=== PATIENT | male | born 1935 | race Caucasian/White ===

== ENCOUNTER 2021-11-25 16:17 | Inpatient (IN) | payer MEDICARE, BC, OTHER ==
[2021-11-25] MEDS ORDERED: Potassium Chloride 10 MEQ in Premix Bag 1 BAG IV ONE (18:54)
[2021-11-25] MEDS ORDERED: Potassium Chloride 10 MEQ Tab.ER PO ONE (18:56)
[2021-11-25] MEDS ORDERED: Pantoprazole 40 MG Vial IVPUSH ONE ×2 (20:32→23:15)
[2021-11-25] MEDS ORDERED: Pantoprazole 40 MG Vial ONE (20:32)
[2021-11-25] MEDS: Potassium Chloride 10 MEQ in Premix Bag 1 BAG IV SCH ×2 (22:47→22:48)
[2021-11-25] MEDS: Potassium Chloride 20 MEQ Tab.ER PO SCH ×2 (22:47→22:55)
[2021-11-26] MEDS: Sodium Chloride 0.9% 1,000 ML IV SCH ×2 (02:33→15:52)
[2021-11-26] MEDS: Potassium Chloride 20 MEQ Tab.ER PO SCH ×3 (09:14→23:29)
[2021-11-26] MEDS ORDERED: Potassium Chloride 20 MEQ Tab.ER PO ONE (11:30)
[2021-11-26] MEDS: Acetaminophen 325 MG Tab PO PRN ×2 (11:40→20:28)
[2021-11-26] MEDS ORDERED: Albuterol 6.7 GM Inhaler INH PRN (11:42)
[2021-11-26] MEDS ORDERED: Polyethylene Glycol 3350 Powder 17 GM Packet PO PRN (11:42)
[2021-11-26] MEDS ORDERED: Albuterol/Ipratropium 3.0-0.5 MG/3 ML Neb Soln INH PRN (11:42)
[2021-11-26] MEDS ORDERED: Atenolol 25 MG Tab PO ONE (12:30)
[2021-11-26] MEDS ORDERED: Doxazosin 2 MG Tab PO ONE (12:30)
[2021-11-26] MEDS ORDERED: guaiFENesin 600 MG Tab.ER PO ONE (12:45)
[2021-11-26] MEDS ORDERED: Famotidine 20 MG Tab PO ONE (12:45)
[2021-11-26] MEDS ORDERED: Finasteride 5 MG Tab PO ONE (12:45)
[2021-11-26] MEDS ORDERED: Sertraline 50 MG Tab PO ONE (12:45)
[2021-11-26] MEDS ORDERED: Furosemide 20 MG Tab PO ONE (12:45)
[2021-11-26] MEDS: Furosemide 20 MG Tab PO SCH (20:27)
[2021-11-26] MEDS: Atenolol 25 MG Tab PO SCH (20:27)
[2021-11-26] MEDS: guaiFENesin 600 MG Tab.ER PO SCH (20:27)
[2021-11-26] MEDS ORDERED: traZODone 50 MG Tab PO PRN (23:22)
[2021-11-27] MEDS: Pantoprazole 40 MG Tab.CR PO SCH (06:08)
[2021-11-27] MEDS ORDERED: Magnesium Hydroxide 400 MG/5 ML Susp 30 ML Cup PO ONE (09:00)
[2021-11-27] MEDS: Potassium Chloride 20 MEQ Tab.ER PO SCH ×4 (10:29→20:07)
[2021-11-27] MEDS: Doxazosin 2 MG Tab PO SCH ×2 (10:29→13:58)
[2021-11-27] MEDS: Furosemide 20 MG Tab PO SCH ×3 (10:30→20:03)
[2021-11-27] MEDS: Finasteride 5 MG Tab PO SCH ×2 (10:30→14:02)
[2021-11-27] MEDS: Famotidine 20 MG Tab PO SCH ×2 (10:30→14:01)
[2021-11-27] MEDS: guaiFENesin 600 MG Tab.ER PO SCH ×3 (10:30→20:04)
[2021-11-27] MEDS: Sertraline 50 MG Tab PO SCH ×2 (10:31→14:01)
[2021-11-27] MEDS: Atenolol 25 MG Tab PO SCH ×3 (10:31→20:05)
[2021-11-27] MEDS ORDERED: traZODone 50 MG Tab PO PRN (15:42)
[2021-11-27] MEDS ORDERED: Haloperidol Lactate 5 MG/ML SDV IVPUSH ONE (21:21)
[2021-11-27] MEDS ORDERED: Haloperidol Lactate 5 MG/ML SDV ONE (21:24)
[2021-11-28] MEDS ORDERED: Haloperidol Lactate 5 MG/ML SDV ONE (00:05)
[2021-11-28] MEDS ORDERED: Haloperidol Lactate 5 MG/ML SDV IVPUSH ONE (00:09)
[2021-11-28] MEDS: Pantoprazole 40 MG Tab.CR PO SCH (05:42)
[2021-11-28] MEDS: Atenolol 25 MG Tab PO SCH ×2 (09:51→20:25)
[2021-11-28] MEDS: guaiFENesin 600 MG Tab.ER PO SCH ×2 (09:51→20:26)
[2021-11-28] MEDS: Furosemide 20 MG Tab PO SCH ×2 (09:52→20:25)
[2021-11-28] MEDS: Sertraline 50 MG Tab PO SCH (09:52)
[2021-11-28] MEDS: Finasteride 5 MG Tab PO SCH (09:52)
[2021-11-28] MEDS: Doxazosin 2 MG Tab PO SCH (09:52)
[2021-11-28] MEDS: Famotidine 20 MG Tab PO SCH (09:52)
[2021-11-28] MEDS: Potassium Chloride 20 MEQ Tab.ER PO SCH ×3 (09:52→20:26)
[2021-11-29] MEDS: Acetaminophen 325 MG Tab PO PRN (02:50)
[2021-11-29] MEDS: Pantoprazole 40 MG Tab.CR PO SCH (05:45)
[2021-11-29] MEDS: Finasteride 5 MG Tab PO SCH (08:34)
[2021-11-29] MEDS: Famotidine 20 MG Tab PO SCH (08:34)
[2021-11-29] MEDS: Potassium Chloride 20 MEQ Tab.ER PO SCH (08:34)
[2021-11-29] MEDS: guaiFENesin 600 MG Tab.ER PO SCH (08:35)
[2021-11-29] MEDS: Doxazosin 2 MG Tab PO SCH (08:35)
[2021-11-29] MEDS: Furosemide 20 MG Tab PO SCH (08:35)
[2021-11-29] MEDS: Atenolol 25 MG Tab PO SCH (08:35)
[2021-11-29] MEDS: Sertraline 50 MG Tab PO SCH (08:35)
[2021-11-29 08:36] VITALS: BP 149/82; PULSE 95
[2021-12-02] MEDS ORDERED: Metolazone 2.5 MG Tab PO SCH (09:00)
== END 2021-11-29 11:40 | disposition home or self-care (01) | DRG 292 ==
LOC: JD.ED 16:17 → JD.MS 19:03 → OBSVTOIN 21:24
PROVIDERS: ADMIT Pediatrics; ATTEND Pediatrics
PROC: 30233N1 Transfusion of Nonautologous Red Blood Cells into Peripheral Vein, Percutaneous Approach (ICD-10-PCS; principal; 2021-11-25)
DX: I13.0 Hypertensive heart and chronic kidney disease with heart failure and stage 1 through stage 4 chronic kidney disease, or unspecified chronic kidney disease (principal); K92.2 Gastrointestinal hemorrhage, unspecified; D64.9 Anemia, unspecified; N18.32 Chronic kidney disease, stage 3b; D63.1 Anemia in chronic kidney disease; E87.6 Hypokalemia; R44.1 Visual hallucinations; K59.09 Other constipation; Z20.822 Contact with and (suspected) exposure to COVID-19; H91.90 Unspecified hearing loss, unspecified ear; E66.9 Obesity, unspecified; N40.0 Benign prostatic hyperplasia without lower urinary tract symptoms; N42.9 Disorder of prostate, unspecified; K21.9 Gastro-esophageal reflux disease without esophagitis; I25.10 Atherosclerotic heart disease of native coronary artery without angina pectoris; I12.9 Hypertensive chronic kidney disease with stage 1 through stage 4 chronic kidney disease, or unspecified chronic kidney disease; N18.30 Chronic kidney disease, stage 3 unspecified; E78.00 Pure hypercholesterolemia, unspecified; H54.7 Unspecified visual loss; I50.9 Heart failure, unspecified; D50.0 Iron deficiency anemia secondary to blood loss (chronic); H91.93 Unspecified hearing loss, bilateral; M19.90 Unspecified osteoarthritis, unspecified site; Z79.02 Long term (current) use of antithrombotics/antiplatelets; Z68.29 Body mass index [BMI] 29.0-29.9, adult; Z79.899 Other long term (current) drug therapy
CPT/HCPCS: 36415; 36430; 80053; 81001; 84443; 85025; 86850; 86900; 86901; 86922; 99285; U0002; 51798; 71045; 71045-26; 80048; 83540; 83735; 85045; 87641; 97112-GP; 97116-GP; 97161-GP; A9270-GY; C9113; J1630; J7030; P9016

== ENCOUNTER 2021-12-05 09:15 | Emergency (ER) | payer MEDICARE, BC, OTHER ==
[2021-12-05 09:37] VITALS: BP 132/63; PULSE 71
[2021-12-05] MEDS ORDERED: Sodium Chloride 0.9% 10 ML Syringe FLUSH PRN (09:45)
[2021-12-05] MEDS ORDERED: Potassium Chloride 20 MEQ Tab.ER PO ONE (11:20)
== END 2021-12-05 11:55 | disposition home or self-care (01) ==
LOC: JD.ED 09:15
DX: R06.02 Shortness of breath (principal); R44.3 Hallucinations, unspecified; I12.9 Hypertensive chronic kidney disease with stage 1 through stage 4 chronic kidney disease, or unspecified chronic kidney disease; N18.32 Chronic kidney disease, stage 3b; D63.1 Anemia in chronic kidney disease; I48.0 Paroxysmal atrial fibrillation; I25.10 Atherosclerotic heart disease of native coronary artery without angina pectoris; E78.00 Pure hypercholesterolemia, unspecified; N40.0 Benign prostatic hyperplasia without lower urinary tract symptoms; E66.9 Obesity, unspecified; Z68.30 Body mass index [BMI] 30.0-30.9, adult; Z86.73 Personal history of transient ischemic attack (TIA), and cerebral infarction without residual deficits; Z79.899 Other long term (current) drug therapy; Z79.82 Long term (current) use of aspirin
CPT/HCPCS: 36415; 71045; 80053; 81003; 84443; 85025; 86140; 99285; A9270; J3490; 99284

== ENCOUNTER 2022-01-23 08:59 | Day surgery (SDC) | payer MEDICARE, BC ==
[~2022-01-23 08:59] MED LIST: Lidocaine 1%/Sod Bicarbonate in NS 8.4% 1 ML Syringe IDERM PRN; Sodium Chloride 0.9% 10 ML Syringe FLUSH PRN; Sodium Chloride 0.9% 10 ML Syringe FLUSH SCH
[2022-01-23] MEDS: Lactated Ringers 1,000 ML IV SCH ×2 (09:40→14:30)
[2022-01-23] MEDS: Potassium Chloride 10 MEQ in Premix Bag 1 BAG IV SCH ×2 (11:11→12:19)
[2022-01-23] MEDS ORDERED: Propofol 200 MG/20 ML SDV ONE ×3 (14:27→15:28)
[2022-01-23] MEDS ORDERED: Lidocaine 1% 4 ML ONE (14:30)
[2022-01-23 17:17] VITALS: BP 128/70; PULSE 70
== END 2022-01-23 17:05 | disposition home or self-care (01) ==
LOC: JD.SDS 08:59
PROVIDERS: ATTEND Surgery
DX: D12.2 Benign neoplasm of ascending colon (principal); K31.89 Other diseases of stomach and duodenum; K25.9 Gastric ulcer, unspecified as acute or chronic, without hemorrhage or perforation; K57.30 Diverticulosis of large intestine without perforation or abscess without bleeding; K21.9 Gastro-esophageal reflux disease without esophagitis; I25.10 Atherosclerotic heart disease of native coronary artery without angina pectoris; N40.0 Benign prostatic hyperplasia without lower urinary tract symptoms; I48.0 Paroxysmal atrial fibrillation; H54.7 Unspecified visual loss; E78.00 Pure hypercholesterolemia, unspecified; E66.9 Obesity, unspecified; E55.9 Vitamin D deficiency, unspecified; D64.9 Anemia, unspecified; Z95.1 Presence of aortocoronary bypass graft; E78.5 Hyperlipidemia, unspecified; G47.33 Obstructive sleep apnea (adult) (pediatric); Z87.891 Personal history of nicotine dependence; J44.9 Chronic obstructive pulmonary disease, unspecified; N18.9 Chronic kidney disease, unspecified; I12.9 Hypertensive chronic kidney disease with stage 1 through stage 4 chronic kidney disease, or unspecified chronic kidney disease; Z86.711 Personal history of pulmonary embolism; Z79.82 Long term (current) use of aspirin; Z79.899 Other long term (current) drug therapy
CPT/HCPCS: 36415; 43239; 45380; 45381; 80053; 85025; 86850; 86900; 86901; J2704; J3480; J7120; 00813; 88305; 88313; 88341; 88342

== ENCOUNTER 2022-05-26 00:54 | Inpatient (IN) | payer MEDICARE, BC ==
[2022-05-26] MEDS ORDERED: Sodium Chloride 0.9% 500 ML IV ONE (02:12)
[2022-05-26 02:48] LABS: ESTIMATED GFR 54 mL/min (>60)
[2022-05-26] MEDS ORDERED: Morphine 2 MG/ML SYRINGE IVPUSH ONE ×2 (02:53→07:08)
[2022-05-26] MEDS ORDERED: Iopamidol 612 MG/ML 100 ML Bottle IVPUSH ONE (03:26)
[2022-05-26] MEDS ORDERED: Sodium Chloride 0.9% 10 ML Syringe FLUSH ONE (03:26)
[2022-05-26] MEDS ORDERED: D5 1/2 NS w/ 10 mEq/L KCl 1,000 ML IV SCH (05:45)
[2022-05-26] MEDS ORDERED: Lidocaine 2% 11 ML Jelly Filled Syringe MUCMEM STA (06:05)
[2022-05-26] MEDS ORDERED: Lidocaine 2% 11 ML Jelly Filled Syringe ONE (06:07)
[2022-05-26] MEDS ORDERED: HYDROmorphone 0.5 MG/0.5 ML Syringe IVPUSH PRN (09:36)
[2022-05-26] MEDS: Heparin Sodium 5,000 Units/ML Vial SUBCUT SCH ×2 (10:21→19:46)
[2022-05-26] MEDS: Lactated Ringers 1,000 ML IV SCH (10:22)
[2022-05-26] MEDS ORDERED: Lidocaine 4% Top Soln 50 ML Bottle MUCMEM ONE (11:00)
[2022-05-26] MEDS ORDERED: Albuterol 6.7 GM Inhaler INH PRN (13:33)
[2022-05-26] MEDS: Morphine 2 MG/ML SYRINGE IVPUSH PRN ×4 (14:24→23:36)
[2022-05-26] MEDS: Ondansetron 4 MG/2 ML SDV IV PRN ×2 (14:32→21:35)
[2022-05-26] MEDS ORDERED: hydrALAZINE 20 MG/ML SDV IVPUSH PRN (16:47)
[2022-05-26] MEDS: Doxazosin 2 MG Tab PO SCH (21:17)
[2022-05-26] MEDS: Mirtazapine 15 MG Tab PO SCH (21:17)
[2022-05-26] MEDS: QUEtiapine 25 MG Tab PO SCH (21:18)
[2022-05-27] MEDS: Heparin Sodium 5,000 Units/ML Vial SUBCUT SCH ×3 (01:04→18:44)
[2022-05-27] MEDS: Lactated Ringers 1,000 ML IV SCH (01:04)
[2022-05-27] MEDS: Morphine 2 MG/ML SYRINGE IVPUSH PRN ×2 (02:31→22:28)
[2022-05-27] MEDS: Aspirin 81 MG Tab.Chew PO SCH (09:44)
[2022-05-27] MEDS: Sertraline 50 MG Tab PO SCH (09:44)
[2022-05-27] MEDS: D5 1/2 NS w/ 20 mEq/L KCl 1,000 ML IV SCH (11:05)
[2022-05-27] MEDS: metroNIDAZOLE/Normal Saline 500 MG in Premix Bag 1 BAG IV SCH ×2 (13:54→22:21)
[2022-05-27] MEDS: ceFAZolin 1 GM in Sodium Chloride 0.9% 50 ML IV SCH ×2 (15:09→23:32)
[2022-05-27] MEDS: Finasteride 5 MG Tab PO SCH (15:51)
[2022-05-27] MEDS: QUEtiapine 25 MG Tab PO SCH (20:22)
[2022-05-27] MEDS: Mirtazapine 15 MG Tab PO SCH (20:22)
[2022-05-27] MEDS: Doxazosin 2 MG Tab PO SCH (20:22)
[2022-05-28] MEDS: Heparin Sodium 5,000 Units/ML Vial SUBCUT SCH ×4 (03:18→18:29)
[2022-05-28] MEDS: metroNIDAZOLE/Normal Saline 500 MG in Premix Bag 1 BAG IV SCH ×3 (06:08→21:41)
[2022-05-28] MEDS: ceFAZolin 1 GM in Sodium Chloride 0.9% 50 ML IV SCH ×3 (07:16→22:39)
[2022-05-28] MEDS: Aspirin 81 MG Tab.Chew PO SCH (08:55)
[2022-05-28] MEDS: Sertraline 50 MG Tab PO SCH (08:55)
[2022-05-28] MEDS: Finasteride 5 MG Tab PO SCH (08:55)
[2022-05-28] MEDS: D5 1/2 NS w/ 20 mEq/L KCl 1,000 ML IV SCH (08:55)
[2022-05-28] MEDS: QUEtiapine 25 MG Tab PO SCH (21:37)
[2022-05-28] MEDS: Doxazosin 2 MG Tab PO SCH (21:37)
[2022-05-28] MEDS: Mirtazapine 15 MG Tab PO SCH (21:40)
[2022-05-29] MEDS: D5 1/2 NS w/ 20 mEq/L KCl 1,000 ML IV SCH ×2 (00:06→14:45)
[2022-05-29] MEDS: Heparin Sodium 5,000 Units/ML Vial SUBCUT SCH ×3 (01:11→17:45)
[2022-05-29] MEDS: metroNIDAZOLE/Normal Saline 500 MG in Premix Bag 1 BAG IV SCH (05:06)
[2022-05-29] MEDS: ceFAZolin 1 GM in Sodium Chloride 0.9% 50 ML IV SCH (06:04)
[2022-05-29] MEDS: Aspirin 81 MG Tab.Chew PO SCH (08:43)
[2022-05-29] MEDS: Sertraline 50 MG Tab PO SCH (08:43)
[2022-05-29] MEDS: Finasteride 5 MG Tab PO SCH (08:43)
[2022-05-29] MEDS: Doxazosin 2 MG Tab PO SCH (20:22)
[2022-05-29] MEDS: Mirtazapine 15 MG Tab PO SCH (20:23)
[2022-05-29] MEDS: QUEtiapine 25 MG Tab PO SCH (20:23)
[2022-05-30] MEDS: Heparin Sodium 5,000 Units/ML Vial SUBCUT SCH ×2 (03:05→09:53)
[2022-05-30] MEDS: D5 1/2 NS w/ 20 mEq/L KCl 1,000 ML IV SCH (04:10)
[2022-05-30] MEDS: Sertraline 50 MG Tab PO SCH (08:57)
[2022-05-30] MEDS: Finasteride 5 MG Tab PO SCH (08:57)
[2022-05-30] MEDS: Aspirin 81 MG Tab.Chew PO SCH (08:57)
[2022-05-30 12:20] VITALS: BP 144/70; PULSE 69
== END 2022-05-30 15:38 | DRG 390 ==
LOC: JD.ED 00:54 → JD.MS 06:54
PROVIDERS: ADMIT Surgery; ATTEND Surgery
PROC: 0D9670Z Drainage of Stomach with Drainage Device, Via Natural or Artificial Opening (ICD-10-PCS; principal; 2022-05-26)
DX: K56.609 Unspecified intestinal obstruction, unspecified as to partial versus complete obstruction (principal); N18.31 Chronic kidney disease, stage 3a; I25.10 Atherosclerotic heart disease of native coronary artery without angina pectoris; N18.9 Chronic kidney disease, unspecified; E78.00 Pure hypercholesterolemia, unspecified; R41.0 Disorientation, unspecified; K21.9 Gastro-esophageal reflux disease without esophagitis; E78.5 Hyperlipidemia, unspecified; R54 Age-related physical debility; H91.90 Unspecified hearing loss, unspecified ear; K59.09 Other constipation; N40.0 Benign prostatic hyperplasia without lower urinary tract symptoms; E55.9 Vitamin D deficiency, unspecified; I48.0 Paroxysmal atrial fibrillation; H54.7 Unspecified visual loss; J44.9 Chronic obstructive pulmonary disease, unspecified; G47.30 Sleep apnea, unspecified; M19.90 Unspecified osteoarthritis, unspecified site; H91.93 Unspecified hearing loss, bilateral; I12.9 Hypertensive chronic kidney disease with stage 1 through stage 4 chronic kidney disease, or unspecified chronic kidney disease; K22.2 Esophageal obstruction; Z22.322 Carrier or suspected carrier of Methicillin resistant Staphylococcus aureus; Z79.82 Long term (current) use of aspirin; Z79.899 Other long term (current) drug therapy; Z85.828 Personal history of other malignant neoplasm of skin; Z86.711 Personal history of pulmonary embolism; Z79.01 Long term (current) use of anticoagulants; Z87.891 Personal history of nicotine dependence; Z90.49 Acquired absence of other specified parts of digestive tract
CPT/HCPCS: 36415; 71045; 74018; 74177; 80053; 81003; 83690; 85025; 96361; 96365; 96375; 99285; A9270; J2270; J3480; J3490; J7030; Q9967; 74250; 74250-26; 80048; 83735; 87641; 94761; 96376; 97116-GP; 97162-GP; 97166-GO; 97530-GO; 97530-GP; 97535-GO; 99284; J0690; J1170; J1644; J2405; J7120

== ENCOUNTER 2023-03-10 23:08 | Emergency (ER) | payer MEDICARE, BC ==
[2023-03-10 23:25] LABS: BASOPHILS ABSOLUTE AUTO 0.07 K/mm3 (0.01-0.08); BASOPHILS PERCENT AUTO 0.7 % (0.1-1.2); EOSINOPHILS ABSOLUTE AUTO 0.34 K/mm3 (0.04-0.54); EOSINOPHILS PERCENT AUTO 3.5 (0.8-7.0); HEMATOCRIT 31.8 % (40.1-51.0); HEMOGLOBIN 9.3 gm/dl (13.7-17.5); IMMATURE GRAN ABSOLUTE AUTO 0.03 K/mm3 (0.00-0.10); IMMATURE GRAN PERCENT AUTO 0.3 % (<=1.0); LYMPHOCYTES ABSOLUTE AUTO 1.79 K/mm3 (1.32-3.57); LYMPHOCYTES PERCENT AUTO 18.4 % (21.8-53.1); MEAN CORPUSCULAR HGB CONC 29.2 g/dl (32.2-35.5); MEAN CORPUSCULAR VOLUME 88.8 fl (79.0-92.2); MEAN PLATELET VOLUME 10.7 fl (9.4-12.3); MONOCYTES ABSOLUTE AUTO 1.62 K/mm3 (0.30-0.82); MONOCYTES PERCENT AUTO 16.6 % (5.3-12.2); NEUTROPHILS PERCENT AUTO 60.5 % (34.0-67.9); PLATELET COUNT,PLT 227 K/mm3 (163-337); RED BLOOD CELL COUNT 3.58 M/mm3 (4.63-6.08); WHITE BLOOD CELL COUNT,WBC 9.75 K/mm3 (4.23-9.07)
[2023-03-10 23:43] LABS: INR 1.04; PROTHROMBIN TIME 11.1 SECONDS (9.7-12.0)
[2023-03-10 23:49] LABS: ALBUMIN 3.1 g/dl (3.4-5.0); ANION GAP 12.7 (5-15); BILIRUBIN TOTAL 0.3 mg/dL (0.2-1.0); BUN/CREATININE RATIO 10.6 (14-18); CALCIUM 8.4 mg/dL (8.5-10.1); CREATININE 1.7 mg/dL (0.7-1.3); EST CRCL DRUG DOSING (CG) 30.74 mL/min; POTASSIUM,K 3.7 mEq/L (3.5-5.1); PROTEIN TOTAL,TP 6.2 g/dl (6.4-8.2)
[2023-03-10 23:56] LABS: SLIDE REVIEW ABNORMAL SMEAR
[2023-03-11 01:00] VITALS: BP 118/84; PULSE 74
== END 2023-03-11 00:51 ==
LOC: JD.ED 23:08
DX: R07.89 Other chest pain (principal); I25.10 Atherosclerotic heart disease of native coronary artery without angina pectoris; E78.00 Pure hypercholesterolemia, unspecified; J44.9 Chronic obstructive pulmonary disease, unspecified; K21.9 Gastro-esophageal reflux disease without esophagitis; I12.9 Hypertensive chronic kidney disease with stage 1 through stage 4 chronic kidney disease, or unspecified chronic kidney disease; N18.9 Chronic kidney disease, unspecified; Z79.82 Long term (current) use of aspirin; Z79.899 Other long term (current) drug therapy
CPT/HCPCS: 36415; 71045; 71045-26; 80053; 84484; 85025; 85610; 93005; 93010; 99285

== ENCOUNTER 2024-10-28 16:27 | Emergency (ER) | payer MEDICARE, BC ==
[2024-10-28 17:41] LABS: BASOPHILS PERCENT AUTO 0.2 % (0.0-1.0); EOSINOPHILS PERCENT AUTO 0.1 % (0.0-6.0); HEMOGLOBIN 8.3 gm/dl (14.0-18.0); IMMATURE GRAN PERCENT AUTO 0.6 % (0.0-0.4); LYMPHOCYTES ABSOLUTE AUTO 0.5 K/mm3 (1.0-4.8); LYMPHOCYTES PERCENT AUTO 3.2 % (24.0-44.0); MEAN CORPUSCULAR HEMOGLOBIN 24.2 pg (28.0-32.0); MEAN CORPUSCULAR HGB CONC 30.7 g/dl (32.0-36.0); MEAN CORPUSCULAR VOLUME 78.7 fl (83.0-99.0); MEAN PLATELET VOLUME 11.3 fl (9.4-12.4); MONOCYTES ABSOLUTE AUTO 1.3 K/mm3 (0.0-0.8); MONOCYTES PERCENT AUTO 7.3 % (0.0-8.0); NEUTROPHILS ABSOLUTE AUTO 15.1 K/mm3 (1.8-7.7); NEUTROPHILS PERCENT AUTO 88.6 % (41.0-71.0); PLATELET COUNT,PLT 316 K/mm3 (150-400); RED BLOOD CELL COUNT 3.43 M/mm3 (4.52-5.90); WHITE BLOOD CELL COUNT,WBC 17.01 K/mm3 (3.9-11.3)
[2024-10-28 18:23] LABS: A/G RATIO 0.7 (1-2); ALANINE AMINOTRANSFERASE,ALT 14 U/L (16-63); ALBUMIN 2.3 g/dl (3.4-5.0); ALKALINE PHOSPHATASE 93 U/L (46-116); ANION GAP 17.7 (5-15); ASPARTATE AMNIOTRANSFERASE,AST 16 U/L (15-37); BILIRUBIN TOTAL 0.7 mg/dL (0.2-1.0); BLOOD UREA NITROGEN,BUN 38 mg/dL (7-18); CALCIUM 8.2 mg/dL (8.5-10.1); CARBON DIOXIDE,CO2 22 mEq/L (21-32); CHLORIDE,CL 107 mEq/L (98-107); CREATININE 1.9 mg/dL (0.7-1.3); ESTIMATED GFR 34 mL/min (>60); GLUCOSE RANDOM 109 mg/dL (70-99); POTASSIUM,K 2.7 mEq/L (3.5-5.1); PROTEIN TOTAL,TP 5.7 g/dl (6.4-8.2); SODIUM,NA 144 mEq/L (136-145)
[2024-10-28 21:26] VITALS: BP 111/56; PULSE 91
== END 2024-10-28 21:24 | disposition home or self-care (01) ==
LOC: JD.ED 16:27
DX: M25.551 Pain in right hip (principal); I12.9 Hypertensive chronic kidney disease with stage 1 through stage 4 chronic kidney disease, or unspecified chronic kidney disease; N18.9 Chronic kidney disease, unspecified; E78.00 Pure hypercholesterolemia, unspecified; I25.10 Atherosclerotic heart disease of native coronary artery without angina pectoris; Z95.1 Presence of aortocoronary bypass graft; Z79.82 Long term (current) use of aspirin; Z79.899 Other long term (current) drug therapy
CPT/HCPCS: 36415; 70450; 70450-26; 73502-26-RT; 73502-RT; 73552-26-RT; 73552-RT; 80053; 85025; 99284